=== PATIENT | female | born 1930 | race Caucasian/White ===

== ENCOUNTER 2016-08-05 06:01 | Emergency (ER) | payer OTHER, MEDICARE ==
[~2016-08-05] VITALS: Ht 162.6 cm; Wt 68.0 kg
[~2016-08-05 06:01] MED LIST: AUGMENTIN 500-1 EACH PO; BACTRIM DS TAB1 EACH PO; BETHANECHOL CHL10 M1 PO; BISACODYL5 M1 PO; CENTRUM SILVER1 EAC3 PO; DILTIAZEM ER240 M1 PO; DONEPEZIL HCL10 M1 PO; FLUOXETINE HCL40 M1 PO; MATZIM LA240 MG PO; MIRALAX119 GM PO; NAMENDA10 M2 PO; PERCOCET 5-3251 EACH PO; RISPERDAL1 M1 PO; SENNA-TIME S T1 EACH PO; TENORMIN25 M1 PO; TRAMADOL HCL50 M1 PO; TRAZODONE HCL50 M1 PO; TYLENOL325 M1 PO; VALSARTAN160 M1 PO; XARELTO20 M2 PO
[2016-08-05 06:07] VITALS: BP 164/84
--- NOTE | 2016-08-05 06:11 | ED MVC/FALL/TRAUMA COMPLAINT ---
See Addendum History of Present Illness General Chief Complaint: Fall Stated Complaint: BIBA FALL Source: patient, EMS, W10 Exam Limitations: no limitations Vital Signs & Intake/Output Vital Signs & Intake/Output Vital Signs Date Time Temp Pulse Resp B/P Pulse O2 O2 Flow FiO2 Ox Delivery Rate 08/05 613 Room Air 08/05 606 97.4 69 18 164/84 97 Room Air Allergies Coded Allergies: Penicillins (FACE, THROAT SWELLING 07/18/15) fentanyl (Intermediate, DROPS BLODD PRESSURE 04/07/16) morphine (Intermediate, anxious, delirum 04/09/16) Reconcile Medications Atenolol (Tenormin) 25 MG TABLET 1 TAB PO BID HEART (Reported) Ciprofloxacin HCl (Cipro) 250 MG TABLET 1 TAB PO BID UTI (Reported) Diltiazem HCl (Matzim LA) 240 MG TAB.ER.24H 1 TAB PO DAILY AFIB (Reported) Donepezil HCl (Aricept) 10 MG TABLET 1 TAB PO QPM DEMENTIA (Reported) Memantine HCl (Namenda) 10 MG TABLET 1 TAB PO BEDTIME DEMENTIA (Reported) Rivaroxaban (Xarelto) 20 MG TABLET 1 TAB PO DAILY BLOOD THINNER (Reported) with food Sennosides/Docusate Sodium (Senna-Time S Tablet) 8.6 MG-50 MG TABLET 187 MG PO AT BEDTIME PRN constipation Sertraline HCl (Zoloft) 25 MG TABLET MOOD SWINGS (Reported) Trazodone HCl 50 MG TABLET 0.5 TAB PO PRN AGITATION (Reported) Valsartan (Diovan) 80 MG TABLET 1 TAB PO DAILY HTN (Reported) Triage Note: PT PRO FROM [facility]. PER STAFF PT FELL GETTING OUT OF BED THIS AM, GOT HERSELF BACK INTO BED. DOCTOR ON BELIEVED PT NEEDED TO COME TO ER TO GET EVALUATED. PT C/O OF HEAD SORENESS. PT HAS BUMP OF BACK OF HEAD, +BLOODTHINNERS, AND BRUISE ON BACK. PT HAS HX OF DEMENTIA, PER EMS PT IS ACTING SAME BASELINE, NO NEURO CHANGES FROM PTS NORMAL STATE. Triage Nurses Notes Reviewed? yes Onset: Abrupt Duration: hour(s): (FEW) Timing: single episode today Severity: mild, moderate Injuries/Fall Location: head, back Method of Injury: fall Loss of Consciousness: no loss of consciousness No Modifying Factors: none HPI: 85 year old female with history of AFib on xarelto, alzheimers dementia, presents after fall out of bed. Patient was able to get up off the floor and was put back in bed but then they noticed a hematoma and sent her for evaluation. Patient denies pain, blurred vision, weakness, chest pain, back pain or shortness of breath. She is aware that she was sent for a bump on the back of her head. Bruising noted to her posterior thorax. Past History Travel History Traveled to [place] past 21 day No Medical History Any Pertinent Medical History? see below for history Neurological: Alzheimer's disease, dementia EENT: macular degeneration Cardiovascular: AFIB, HYPERTENSION MITRAL VALVE REPLACEMENT Respiratory: NONE Gastrointestinal: NONE Hepatic: NONE Renal: NONE Musculoskeletal: osteoarthritis Psychiatric: depression, DEMENTIA Endocrine: NONE Blood Disorders: NONE Cancer(s): NONE UPPER STITCHER/Reproductive: NONE History of MRSA: No History of VRE: No History of CDIFF: No Influenza Vaccine: 03/31/16 Surgical History Surgical History: knee replacement, mitral valve repair Psychosocial History Services at Home Physical Therapy What is your primary language Belarusian Tobacco Use: Cognitive Impairment Family History Family History, If Any: BROTHER (MA @ 42y/o). . FATHER, . MOTHER (HTN). . Hx Contributory? No Review of Systems Review of Systems Constitutional: Denies: chills, fever. Eyes: Denies: blurred vision. Ears, Nose, Throat, Mouth: Reports: no symptoms. Respiratory: Denies: cough, short of breath, sputum production. Cardiovascular: Denies: chest pain, palpitations. Gastrointestinal/Abdominal: Denies: abdominal pain. Genitourinary: Reports: no symptoms. Musculoskeletal: Denies: back pain, muscle pain, muscle stiffness. Skin: Reports: see HPI, erythema. Neurological/Psychological: Denies: anxiety, confusion, headache. All Other Systems: Reviewed and Negative Physical Exam Physical Exam General Appearance: well developed/nourished, alert, awake, anxious, mild distress Head: atraumatic, normal appearance Eyes: Bilateral: normal appearance, PERRL, normal inspection. Ears, Nose, Throat, Mouth: hearing grossly normal, moist mucous membrane Neck: normal inspection, supple, full range of motion Respiratory: normal breath sounds, chest non-tender, no respiratory distress Cardiovascular: edema Peripheral Pulses: 2+ radial (R), 2+ radial (L) Gastrointestinal: soft, non-tender Back: normal range of motion, NO MIDLINE TENDERNESS, BRUISING TO UPPER BACK Extremities: normal range of motion, FROM X 4, NO PAIN Neurologic/Psych: no motor/sensory deficits, awake, alert, oriented x 3 Skin: intact, normal color, warm/dry, ecchymosis (UPPER BACK) Core Measures ACS in differential dx? No Severe Sepsis Present: No Septic Shock Present: No Progress Differential Diagnosis: C/T/L spine injury, ICH, ICH, RIB FRACTURE, PULMONARY CONTUSION Plan of Care: Orders Procedure Date/time Status CT CHEST WO IV CONTRAST 08/05 609 Active Diagnostic Imaging: Viewed by Me: CT Scan. Discussed w/RAD: CT Scan. Hand-Off Endorsed To: ISHAN AGUILERA,NATHAN Painting Endorsed Time: 07 Pending: CT Departure Departure Disposition: STILL A PATIENT Condition: Stable Clinical Impression Primary Impression: Head injury Secondary Impressions: Hematoma Referrals: ALMAZ AGUILERA,CINDY Rivas (PCP/Family) Departure Forms: Customer Survey General Discharge Information ED Attending Observation Initial Observation Note: I have seen and personally examined CELSO QUISPE on 08/05/16 at 0617. I agree with the current emergency department documentation. The disposition (admission or discharge) is uncertain at this time, she needs a period of observation for the following reason(s): The ED Nurse caring for this patient has been personally informed as to what the patient is being observed for. ED Attending Observation Initial Observation Note: I have seen and personally examined CELSO QUISPE on 08/05/16 at 0617. I agree with the current emergency department documentation. The disposition (admission or discharge) is uncertain at this time, she needs a period of observation for the following reason(s): The ED Nurse caring for this patient has been personally informed as to what the patient is being observed for.
[2016-08-05] MEDS ORDERED: CIPRO250 M1 PO (06:21)
[2016-08-05] MEDS ORDERED: ARICEPT10 M1 PO (06:23)
[2016-08-05] MEDS ORDERED: DIOVAN80 M1 PO (06:25)
[2016-08-05] MEDS ORDERED: ZOLOFT25 M1 (06:26)
--- NOTE | 2016-08-05 06:59 | CT SCAN REPORT ---
EXAMINATION: CT HEAD WITHOUT CONTRAST CLINICAL INFORMATION: Trauma. On Xarelto. COMPARISON: CT head 04/06/2016 TECHNIQUE: Contiguous axial imaging was performed from the skull base to vertex without intravenous administration of contrast. FINDINGS: There is no evidence of acute intracranial hemorrhage or territorial infarction. No abnormal mass effect or midline shift is seen. River to white matter differentiation is well preserved. No extra-axial fluid collections are identified. There is atrophy with prominence of the ventricles and the sulci and hypodensity of the periventricular white matter due to chronic small vessel ischemic disease. There is vascular calcifications of the internal carotid arteries bilaterally. The osseous structures and soft tissues are normal. Normal aeration of the mastoid air cells. Right maxillary sinus is partially visualized and opacified. Metallic sutures seen at the posterior superior wall the right maxillary sinus IMPRESSION: No acute intracranial pathology.
--- NOTE | 2016-08-05 07:02 | CT SCAN REPORT ---
EXAMINATION: CT CERVICAL SPINE WITHOUT CONTRAST CLINICAL INFORMATION: Trauma. COMPARISON: CT cervical spine 04/06/2016 TECHNIQUE: Axial images obtained through the cervical spine. Coronal and sagittal reformatted images are performed at the CT scanner FINDINGS: No fracture. No subluxation. No prevertebral soft tissue swelling. Multilevel degenerative spondylosis with disc height narrowing and multilevel facet joint disease. No soft tissue hematoma or fluid collection. Lung apices are clear. IMPRESSION: No acute abnormality CT of cervical spine.
--- NOTE | 2016-08-05 07:07 | CT SCAN REPORT ---
EXAMINATION: CT CHEST WITHOUT CONTRAST CLINICAL INFORMATION: Fall. Ecchymosis posteriorly COMPARISON: Chest x-ray 04/05/2016. CT of chest 08/11/2006 TECHNIQUE: Multidetector volumetric CT imaging of the chest was done. Axial MIP volume rendering provided. Sagittal and coronal reformatted images were obtained. DLP: 173.51 mGy-cm FINDINGS: SALES SUPPORT ENGINEER: Status post median sternotomy. Status post mitral valve replacement. LUNGS: The lungs are clear with no evidence of inflammation or nodules. MEDIASTINUM: Status post mitral valve replacement. Vascular calcification of coronary arteries. Vascular calcifications of the wall of the thoracic aorta. No pericardial effusion. No mass or significant lymphadenopathy. PLEURA: There is no pleural effusion. No pleural mass or thickening. AXILLA: No lymphadenopathy. UPPER ABDOMEN: Unremarkable. OSSEOUS STRUCTURES: Status post median sternotomy. Status post right shoulder replacement . There is compression deformity of the central endplates of C6 about 25% loss of height of the vertebrae. No fracture line through the vertebrae. No paraspinal hematoma. This is likely old change IMPRESSION: Compression deformity of T6 vertebrae favored to be an old change with no fracture line or paraspinal hematoma. Status post mitral valve replacement. Status post right shoulder replacement.
== END 2016-08-05 07:37 ==
LOC: ERH 06:01
DX: S09.90XA Unspecified injury of head, initial encounter (principal); S20.229A Contusion of unspecified back wall of thorax, initial encounter; W06.XXXA Fall from bed, initial encounter; Y93.9 Activity, unspecified; Y92.129 Unspecified place in nursing home as the place of occurrence of the external cause